=== PATIENT | male | born 1950 | race Caucasian/White ===

== ENCOUNTER 2019-04-14 10:21 | Emergency (ER) | payer MEDICARE, BC ==
[2019-04-14] MEDS ORDERED: Sodium Chloride 0.9% 10 ML Syringe FLUSH PRN (11:34)
[2019-04-14] MEDS ORDERED: Magnesium Sulfate/Water 2 GM in Premix Bag 1 BAG IV ONE (11:35)
[2019-04-14] MEDS ORDERED: Magnesium Oxide 400 MG Tab PO ONE ×2 (11:35→14:24)
--- NOTE | 2019-04-14 11:39 | EDM.PDOC ---
ED HPI GENERAL MEDICAL PROBLEM - General Chief Complaint: General Stated Complaint: WEAKNESS, LOW MAGNESIUM Time Seen by Provider: 04/14/19 11:36 Source of Information: Reports: Patient History Limitations: Reports: No Limitations - History of Present Illness INITIAL COMMENTS - FREE TEXT/NARRATIVE: pt was sent from the clinic because he had lab work done prior to his diabetic check with Dr Holm. His k was 3.2 His mag was extremely low at .6. Onset: Gradual Duration: Hour(s): Location: Reports: Other (pt has noted some left cva pain. To him it felt like his kidney. ) Associated Symptoms: Reports: No Other Symptoms - Related Data Allergies Allergy/AdvReac Type Severity Reaction Status Date / Time amlodipine Allergy Cannot Verified 04/14/19 10:40 Remember bisacodyl [From Biscolax] Allergy Cannot Verified 04/14/19 10:40 Remember hydrochlorothiazide Allergy Cannot Verified 04/14/19 10:40 Remember lisinopril Allergy Cannot Verified 04/14/19 10:40 Remember polyethylene glycol 3350 Allergy Cannot Verified 04/14/19 10:40 [From Miralax] Remember ADHESIVE TAPE Allergy Cannot Uncoded 04/14/19 10:40 Remember Home Meds: Home Meds Aspirin [Halfprin] 81 mg PO DAILY 04/26/14 [History] Betamethasone/Propylene Glyc [Diprolene 0.05%] 1 cm TP BID PRN 04/26/14 [History ] Furosemide 40 mg PO DAILY 04/26/14 [History] Omeprazole 20 mg PO DAILY 04/26/14 [History] Terazosin [Hytrin] 5 mg PO Q8HR 04/26/14 [History] hydrALAZINE [Apresoline] 100 tab PO TID 04/26/14 [History] Cholecalciferol (Vitamin D3) [Vitamin D3] 5,000 unit PO DAILY 04/14/19 [History] Finasteride 5 mg PO DAILY 04/14/19 [History] Isosorbide Mononitrate [Isosorbide Mononitrate ER] 60 mg PO DAILY 04/14/19 [ History] Methotrexate Sodium [Methotrexate] 5 tab PO ASDIRECTED 04/14/19 [History] Metoprolol Tartrate [Lopressor] 50 mg PO Q12HR 04/14/19 [History] Rosuvastatin Calcium 10 mg PO DAILY 04/14/19 [History] metFORMIN HCl [Metformin HCl] 1,000 mg PO BID 04/14/19 [History] Past Medical History Cardiovascular History: Reports: CAD, High Cholesterol, Hypertension, [place], Other (See Below) Other Cardiovascular History: THORACIC AND ABDOMEN ANEURYSUM. Venous insufficiency. Edema Gastrointestinal History: Reports: GERD, Other (See Below) Other Gastrointestinal History: barretts esophagus. fatty liver Genitourinary History: Reports: BPH, Renal Calculus Musculoskeletal History: Reports: Arthritis, Back Pain, Chronic, Fracture, Gout Psychiatric History: Reports: Depression Endocrine/Metabolic History: Reports: Diabetes, Type II, Obesity/BMI 30+ Dermatologic History: Reports: Psoriasis - Infectious Disease History Infectious Disease History: Reports: Chicken Pox, Measles, Mumps - Past Surgical History Cardiovascular Surgical History: Reports: Coronary Artery Bypass GI Surgical History: Reports: Colon, Colonoscopy, EGD Male Surgical History: Reports: Other (See Below) Other Male Surgeries/Procedures: kidney stone surgery Social & Family History - Tobacco Use Smoking Status *Q: Former Smoker Used Tobacco, but Quit: Yes Month/Year Tobacco Last Used: 15 years - Caffeine Use Caffeine Use: Reports: Coffee - Recreational Drug Use Recreational Drug Use: No ED ROS GENERAL - Review of Systems Review Of Systems: See Below Constitutional: Reports: No Symptoms HEENT: Reports: No Symptoms Respiratory: Reports: No Symptoms Cardiovascular: Reports: No Symptoms Endocrine: Reports: No Symptoms GI/Abdominal: Reports: Other (some discomfort in the left cva area. ) : Reports: No Symptoms Musculoskeletal: Reports: No Symptoms Skin: Reports: No Symptoms ED EXAM, GENERAL - Physical Exam Exam: See Below Free Text/Narrative:: pt arrived with a history of a magnesium level of .6 He was sent here for a mag infusion, He has a upcoming appt with Dr Holm. Exam Limited By: No Limitations General Appearance: Alert, Mild Distress Ears: Normal TMs Nose: Normal Inspection Throat/Mouth: Normal Inspection Head: Atraumatic Neck: Normal Inspection Respiratory/Chest: No Respiratory Distress Cardiovascular: Regular Rate, Rhythm, Other (pt is having a rare ectopic. ) GI/Abdominal: Soft, Non-Tender (Male) Exam: Deferred Rectal (Males) Exam: Deferred Back Exam: Normal Inspection Extremities: Normal Inspection Neurological: Alert, Oriented, Normal Cognition Psychiatric: Normal Affect Course - Vital Signs Last Recorded V/S: Last Vital Signs Temp 37.3 C 04/14/19 10:37 Pulse 73 04/14/19 13:47 Resp 12 04/14/19 13:47 BP 111/59 L 04/14/19 13:47 Pulse Ox 93 L 04/14/19 13:47 - Orders/Labs/Meds Orders: Active Orders 24 hr Category Date Time Status Influenza Vaccine Charge [RC] .DISCHARGE Care 04/14/19 11:07 Inactive Magnesium Sulfate/Water [Magnesium Sulfate in Water Med 04/14/19 11:35 Active Premix] 2 gm Premix Bag 1 bag IV ONETIME Sodium Chloride 0.9% [Saline Flush] Med 04/14/19 11:34 Active 10 ml FLUSH ASDIRECTED PRN Saline Lock Insert [OM.PC] Routine Oth 04/14/19 11:34 Ordered Medication Orders Magnesium Sulfate 2 gm/ Premix 50 mls @ 12.5 mls/hr IV ONETIME ONE Stop: 04/14/19 15:34 Last Admin: 04/14/19 12:15 Dose: 12.5 mls/hr Sodium Chloride (Saline Flush) 10 ml FLUSH ASDIRECTED PRN PRN Reason: Keep Vein Open Last Admin: 04/14/19 12:18 Dose: 10 ml Labs: Laboratory Tests 04/14/19 04/14/19 Range/Units 11:41 13:26 Magnesium 0.8 L (1.8-2.4) mg/dL Urine Color Yellow (YELLOW) Urine Appearance Clear (CLEAR) Urine pH 5.0 (5.0-8.0) Ur Specific Hartley 1.010 (1.008-1.030) Urine Protein Negative (NEGATIVE) mg/dL Urine Glucose (UA) Negative (NEGATIVE) mg/dL Urine Ketones Negative (NEGATIVE) mg/dL Urine Occult Blood Negative (NEGATIVE) Urine Nitrite Negative (NEGATIVE) Urine Bilirubin Negative (NEGATIVE) Urine Urobilinogen 0.2 (0.2-1.0) EU/dL Ur Leukocyte Esterase Negative (NEGATIVE) Urine RBC 0-5 (0-5) Urine WBC 0-5 (0-5) Ur Epithelial Cells Rare Amorphous Sediment Not seen Urine Bacteria Not seen Urine Mucus Not seen Meds: Medications Generic Name Dose Route Start Last Admin Trade Name Freq PRN Reason Stop Dose Admin Magnesium Sulfate 2 gm/ Premix 50 mls @ 12.5 mls/hr 04/14/19 11:35 04/14/19 12:15 IV 04/14/19 15:34 12.5 mls/hr ONETIME ONE Administration Sodium Chloride 10 ml 04/14/19 11:34 04/14/19 12:18 Saline Flush FLUSH 10 ml ASDIRECTED PRN Administration Keep Vein Open Discontinued Medications Generic Name Dose Route Start Last Admin Trade Name Sabinoq PRN Reason Stop Dose Admin Influenza Virus Vaccine 1 each 04/14/19 11:06 Pharmacy To Dose - Influenza Vaccine IM 04/14/19 11:07 ONETIME ONE Magnesium Oxide 800 mg 04/14/19 11:35 04/14/19 11:55 Magnesium Oxide PO 04/14/19 11:36 800 mg ONETIME ONE Administration - Re-Assessments/Exams Free Text/Narrative Re-Assessment/Exam: 04/14/19 14:22 pt was given a 2 gm infusion of magnesium He was also given 800mg of oral. His mag was rechecked and it was .8. Departure - Departure Time of Disposition: 14:23 Disposition: Home, Self-Care 01 Condition: Fair Clinical Impression: Hypomagnesemia, Hypokalemia - Discharge Information Referrals: Paresh Holm MD [Primary Care Provider] - Forms: ED Department Discharge Care Plan Goals: high k foods, magnesium 800 mg tid Have mag rechedked next thu when he sees Dr Holm, - My Orders Last 24 Hours: My Active Orders 04/14/19 11:07 Influenza Vaccine Charge [RC] .DISCHARGE 04/14/19 11:34 Sodium Chloride 0.9% [Saline Flush] 10 ml FLUSH ASDIRECTED PRN Saline Lock Insert [OM.PC] Routine 04/14/19 11:35 Magnesium Sulfate/Water [Magnesium Sulfate in Water Premix] 2 gm Premix Bag 1 bag IV ONETIME - Assessment/Plan Last 24 Hours: My Active Orders 04/14/19 11:07 Influenza Vaccine Charge [RC] .DISCHARGE 04/14/19 11:34 Sodium Chloride 0.9% [Saline Flush] 10 ml FLUSH ASDIRECTED PRN Saline Lock Insert [OM.PC] Routine 04/14/19 11:35 Magnesium Sulfate/Water [Magnesium Sulfate in Water Premix] 2 gm Premix Bag 1 bag IV ONETIME
[2019-04-14] MEDS ORDERED: Potassium Chloride 20 MEQ Tab.ER PO ONE (14:25)
== END 2019-04-14 14:52 | disposition home or self-care (01) ==
LOC: JP.ED 10:21
DX: E83.42 Hypomagnesemia (principal); E87.6 Hypokalemia; E11.9 Type 2 diabetes mellitus without complications; I25.10 Atherosclerotic heart disease of native coronary artery without angina pectoris; E78.00 Pure hypercholesterolemia, unspecified; I10 Essential (primary) hypertension; I25.2 Old myocardial infarction; K21.9 Gastro-esophageal reflux disease without esophagitis; M19.90 Unspecified osteoarthritis, unspecified site; N40.0 Benign prostatic hyperplasia without lower urinary tract symptoms; Z68.34 Body mass index [BMI] 34.0-34.9, adult; E66.9 Obesity, unspecified; Z79.84 Long term (current) use of oral hypoglycemic drugs; Z88.8 Allergy status to other drugs, medicaments and biological substances; Z91.048 Other nonmedicinal substance allergy status; Z79.899 Other long term (current) drug therapy; Z79.82 Long term (current) use of aspirin; Z95.1 Presence of aortocoronary bypass graft; Z87.891 Personal history of nicotine dependence; Z23 Encounter for immunization
CPT/HCPCS: 36415; 81001; 83735; 90471; 96365; 96366; 99284; A9270; J3475; 99283

== ENCOUNTER 2024-02-11 07:34 | Day surgery (SDC) | payer MEDICARE, BC ==
[2024-02-11] MEDS: Sodium Chloride 0.9% 10 ML Syringe FLUSH PRN (08:07)
== END 2024-02-11 10:01 | disposition home or self-care (01) ==
LOC: JP.SDS 07:34
PROVIDERS: ATTEND Ophthalmology
DX: E11.36 Type 2 diabetes mellitus with diabetic cataract (principal); H25.12 Age-related nuclear cataract, left eye; I25.10 Atherosclerotic heart disease of native coronary artery without angina pectoris; I10 Essential (primary) hypertension; K21.9 Gastro-esophageal reflux disease without esophagitis
CPT/HCPCS: J3490; V2632

== ENCOUNTER 2024-02-25 06:50 | Day surgery (SDC) | payer MEDICARE, BC ==
[2024-02-25] MEDS: Sodium Chloride 0.9% 10 ML Syringe FLUSH PRN (07:41)
== END 2024-02-25 08:45 | disposition home or self-care (01) ==
LOC: JP.SDS 06:50
PROVIDERS: ATTEND Ophthalmology
DX: H25.11 Age-related nuclear cataract, right eye (principal); Z88.8 Allergy status to other drugs, medicaments and biological substances
CPT/HCPCS: 66984; J3490; V2632